=== PATIENT | female | born 1950 | race Caucasian/White ===

== ENCOUNTER 2019-11-10 10:23 | Outpatient (CLI) | payer MEDICARE, BC ==
[~2019-11-10] VITALS: Ht 167.6 cm; Wt 68.9 kg
[2019-11-10 10:46] LABS: TOTAL HEMOGLOBIN 11.4 G/dl (12.0-16.0)
[2019-11-10] MEDS ORDERED: albuterol 2.5 MG/3 ML nebule NEB ONE (11:05)
== END 2019-11-10 23:59 | disposition home or self-care (01) ==
LOC: RT 10:23
PROVIDERS: ATTEND Internal Medicine Pulmonary Disease
DX: J44.9 Chronic obstructive pulmonary disease, unspecified (principal)
CPT/HCPCS: 85018; 94060; 94727; 94729; 94760